=== PATIENT | female | born 1960 | race African-American/Black ===

== ENCOUNTER 2020-11-29 15:12 | Inpatient (IN) | payer SELFPAY ==
[~2020-11-29] VITALS: Ht 170.2 cm; Wt 133.5 kg
--- NOTE | 2020-11-29 16:40 | NUR ---
PT ARRIVED FROM [facility], ASSESSMENT COMPLETED. CONTACTED DR. VELASQUEZ ABOUT PT ARRIVAL, AND ORDERS STARTED. LABS COMPLETED. REPORT GIVEN TO EVANGELISTA ENGEL.
[2020-11-29] MEDS ORDERED: FLEXERIL 1010 MG/TAB PO (17:55)
[2020-11-29] MEDS ORDERED: XARELTO10 MG PO (17:55)
[2020-11-29] MEDS ORDERED: GLUCOPHAGE500 MG/TAB PO (17:55)
[2020-11-29] MEDS ORDERED: HCTZ 25MG TAB25 MG PO (17:56)
[2020-11-29] MEDS ORDERED: ASPIRIN 81M81 MG/TA2 PO (17:56)
[2020-11-29] MEDS ORDERED: TOPROL XL 50MG50 MG PO (17:57)
[2020-11-29 18:41] LABS: BASO % 0.3 % (0.0-2.0); EOS % 0.4 % (0-4.0); GRAN # 6.4 (1.4-6.5); GRAN % 83.9 % (42.2-75.2); LYMPH # 0.9 (1.2-3.4); LYMPH % 12.3 % (20.0-51.0); MEAN CELL VOLUME 82 fl (80.0-100.0); MEAN CORPUSCULAR HGB CONC 33 g/dl (33.0-37.0); MEAN PLATELET VOLUME 9.2 fl (7.4-10.4); MONO # 0.1 (0.1-0.6); MONO % 1.8 % (1.7-9.3); PLATELET COUNT 89 K/mm3 (130-400); RED BLOOD COUNT 3.31 M/mm3 (4.10-5.30); REDCELL DISTRIBUTION WIDTH-CV 19.1 % (11.5-14.5)
[2020-11-29 18:44] LABS: HEMOGLOBIN 8.8 g/dl (12.5-16.0); MEAN CORPUSCULAR HEMOGLOBIN 27 pg (27.0-31.0)
[2020-11-29 18:47] LABS: INR 1.4 (0.8-3.0); PROTHROMBIN TIME 16.1 SECONDS (9.7-12.8)
[2020-11-29 18:48] LABS: CREATININE, serum 3.27 (0.52-1.25); POTASSIUM 4.3 mmol/L (3.4-5.0); URIC ACID 13.3 mg/dL (2.5-6.2)
[2020-11-29 19:30] VITALS: PULSE 113; TEMP 98.4
[2020-11-29 23:07] VITALS: BP 111/60; PULSE 87; TEMP 98.6
[2020-11-30] VITALS (7 sets, daily range): BP systolic 88–111; BP diastolic 58–63; PULSE 82–98; TEMP 97.4–98.6
--- NOTE | 2020-11-30 01:50 | NUR ---
Call placed to Dr. Duran re: vomit x 2- green bile smelling liquid, no new orders at this time.
[2020-11-30 03:52] LABS: BASO % 0.2 % (0.0-2.0); EOS % 0.2 % (0-4.0); GRAN # 7.5 (1.4-6.5); GRAN % 85.2 % (42.2-75.2); LYMPH % 10.9 % (20.0-51.0); MEAN CELL VOLUME 83 fl (80.0-100.0); MEAN CORPUSCULAR HGB CONC 33 g/dl (33.0-37.0); MEAN PLATELET VOLUME 10.2 fl (7.4-10.4); MONO # 0.2 (0.1-0.6); MONO % 1.9 % (1.7-9.3); PLATELET COUNT 75 K/mm3 (130-400); RED BLOOD COUNT 3.38 M/mm3 (4.10-5.30); REDCELL DISTRIBUTION WIDTH-CV 19.2 % (11.5-14.5)
[2020-11-30 03:56] LABS: HEMOGLOBIN 9.2 g/dl (12.5-16.0); MEAN CORPUSCULAR HEMOGLOBIN 27 pg (27.0-31.0)
[2020-11-30 04:03] LABS: ALBUMIN 2.3 gm/dL (3.5-5.0); CALCIUM 7.1 mg/dL (8.4-10.2); CREATININE, serum 3.31 (0.52-1.25); POTASSIUM 4.3 mmol/L (3.4-5.0)
--- NOTE | 2020-11-30 10:00 | NUR ---
Assessment completed, alert/oriented, vital signs stable /hypotensive and SBP 90's and is aware, patient reports pain is tolerable this morning and overall improved sence having BM last night s/p enema, abdomen is soft/ BS + but hypoactive, she is making very low volume urine ouput/ is aware of this, heart RRR/ SR on tele, lungs CTA/ no resp.difficulty, she has multipe open areas to her gluteal/sacrum/coccygeal areas as well as under her breasts/ panis and to her inner thighs, will continue to monitor
--- NOTE | 2020-11-30 10:50 | NUR ---
HepXa within goal rang at 0.29, no rate change, will continue TRA 10ml/hr (1000u/hr), next HepXa level to be checked at 1700
[2020-11-30 10:52] LABS: COLLECTION METHOD CATHETER
[2020-11-30 11:06] LABS: MUCOUS Present /lpf; PH 5 (5-8); SQUAMOUS EPITHELIAL None Seen /hpf; URINE APPEARANCE Cloudy; URINE BACTERIA Occasional /hpf; URINE BILIRUBIN Negative (NEGATIVE); URINE BLOOD 3+ (NEGATIVE); URINE COLOR Amber; URINE GLUCOSE Negative (NEGATIVE); URINE KETONE Negative (NEGATIVE); URINE LEUKOCYTE ESTERASE 2+ (NEGATIVE); URINE NITRATE Negative (NEGATIVE); URINE PROTEIN(semi-quant) 1+ (NEGATIVE); URINE RBC >50 /hpf
--- NOTE | 2020-11-30 13:59 | NUR ---
Revisit plan after surgery. SW met with patient and Grace . Patient reports that they reside in [place]. Patient reports that her secondary contact is Shelby . Patient reports that her PCP Anusha Liriano at [facility]. Obtains medications from [facility]. Patient reports that she uses [facility]. Patient reports that she was just awarded Disability SSI. Patient reports she is unsure of her needs until after the surgery. Primary transitional care manager is her . Will cotniet to follow for changes in needs.
--- NOTE | 2020-11-30 19:12 | NUR ---
I notified at 1900 that patient is still having soft blood pressures with SBP 90's, also having low blood sugars despite taking in PO intake, last two fsbs have been in the 60's, also have been unable to start a 2nd IV and her current peripheral IV does not appear that it is going to last very long and currently has Hep Gtt going
--- NOTE | 2020-11-30 19:20 | NUR ---
Sitting up in bed, encouraging po fluid/food intake, BSL 69 notified by offgoing RN, no s/s of hypo glycemia, VS stable, Wolf in place.
--- NOTE | 2020-11-30 22:11 | NUR ---
Awake, alert, took pm medications w/o difficulty, heparin gtt ongoing w/o issue, next Xa level at midnight, updated patient on plan of care, blood sugar remains low at 66- encouraging po intake, will recheck, lawson catheter in place, skin care continues addressing excoriation, bruising, bilateral stg 2 to buttocks-mepilex in place, panis and bilateral under breast areas with nystatin powder, offloading pressure with pillows- patient verbalizes importance of turning and repostioning, call campos w/i reach, vomit x 1 -green/yellow liquid, will continue to monitor.
[2020-12-01] VITALS (9 sets, daily range): BP systolic 100–110; BP diastolic 55–70; PULSE 100–114; TEMP 97.6–98.1
[2020-12-01 06:43] LABS: MEAN CELL VOLUME 84 fl (80.0-100.0); MEAN CORPUSCULAR HGB CONC 32 g/dl (33.0-37.0); MEAN PLATELET VOLUME 11.9 fl (7.4-10.4); PLATELET COUNT 79 K/mm3 (130-400); RED BLOOD COUNT 3.07 M/mm3 (4.10-5.30); REDCELL DISTRIBUTION WIDTH-CV 19.6 % (11.5-14.5)
[2020-12-01 06:51] LABS: HEMATOCRIT 25.9 % (37.0-47.0); HEMOGLOBIN 8.2 g/dl (12.5-16.0); MEAN CORPUSCULAR HEMOGLOBIN 27 pg (27.0-31.0)
[2020-12-01 06:55] LABS: ALBUMIN 2.2 gm/dL (3.5-5.0); BILIRUBIN,TOTAL 1.9 mg/dL (0.0-1.0); CALCIUM 7.3 mg/dL (8.4-10.2); CREATININE, serum 3.44 (0.52-1.25); PHOSPHOROUS 2.7 mg/dL (2.5-4.5); POTASSIUM 3.9 mmol/L (3.4-5.0); TOTAL PROTEIN 6.7 gm/dL (6.4-8.2)
[2020-12-01 06:59] LABS: INR 1.3 (0.8-3.0)
--- NOTE | 2020-12-01 07:00 | NUR ---
Assessment completed, alert/oriented, vital signs unchanged and stable/ still hypotensive and borderline tachycardic but afebrile, pain is "ok" right now, she is going to be having dialysis cath placed this morning by / consent is signed / hep. gtt was shut off at 0200 and she has been NPO, fsbs 60-70's, present in the room
[2020-12-01 07:56] LABS: ANISOCYTOSIS 3+; LYMPHOCYTE 12 % (20.0-51.0); METAMYELOCYTE 1 % (0-0); MYELOCYTE 1 % (0-0); NEUTROPHILS 85 % (42.0-75.2); PLATELET ESTIMATE DECREASED (NORMAL)
[2020-12-01 07:57] LABS: HYPOCHROMIA 3+; OVALOCYTES 1+; POIKILOCYTOSIS 1+; POLYCHROMASIA 1+; TEAR DROP CELLS 1+
--- NOTE | 2020-12-01 08:04 | NUR ---
Patient is going down to OR for dialysis catheter placement
--- NOTE | 2020-12-01 09:30 | NUR ---
Patient arrived back to room 307 from OR at this time, she is drowsy but easy to arouse, vital signs stable, dressing to right IJ HDC is C/D/I, present at bedside
--- NOTE | 2020-12-01 18:58 | NUR ---
Patient sitting up in bed, resting quietly, heparin gtt ongoing, call beth w/i reach, patient teaching re: offloading pressure points and wounds, denies needs at this time, no s/s of hypo/hyper glycemia,
--- NOTE | 2020-12-01 21:32 | NUR ---
resting quietly, patient c/o constipation and feeling like I have to go but not being able to and pain with passing gas- MD aware, awaiting surgury consult, Heparin gtt continues @ 10.5ml/hr as ordered, next Xa due at 0200, no s/s of bleeding, patient turned q 2 hours and offloading pressure with pillows, no s/s of hypo/hyper glycemia noted, encouraging po intake, call campos w/i reach.
[2020-12-02] VITALS (7 sets, daily range): BP systolic 86–109; BP diastolic 57–67; PULSE 100–116; TEMP 97.4–98.8
[2020-12-02 02:13] LABS: MEAN CELL VOLUME 86 fl (80.0-100.0); MEAN CORPUSCULAR HGB CONC 32 g/dl (33.0-37.0); MEAN PLATELET VOLUME 9.1 fl (7.4-10.4); PLATELET COUNT 69 K/mm3 (130-400); RED BLOOD COUNT 2.89 M/mm3 (4.10-5.30); REDCELL DISTRIBUTION WIDTH-CV 19.6 % (11.5-14.5)
[2020-12-02 02:16] LABS: HEMATOCRIT 24.7 % (37.0-47.0); HEMOGLOBIN 7.9 g/dl (12.5-16.0); MEAN CORPUSCULAR HEMOGLOBIN 27 pg (27.0-31.0)
[2020-12-02 02:22] LABS: BILIRUBIN,TOTAL 1.7 mg/dL (0.0-1.0); CALCIUM 7.2 mg/dL (8.4-10.2); CREATININE, serum 2.99 (0.52-1.25); POTASSIUM 3.8 mmol/L (3.4-5.0); TOTAL PROTEIN 6.3 gm/dL (6.4-8.2)
[2020-12-02 02:51] LABS: BAND 4 % (0-10); LYMPHOCYTE 12 % (20.0-51.0); NEUTROPHILS 81 % (42.0-75.2)
[2020-12-02 02:52] LABS: HYPOCHROMIA 1+
[2020-12-02 02:54] LABS: ANISOCYTOSIS 1+; PLATELET ESTIMATE DECREASED (NORMAL)
[2020-12-02 02:55] LABS: OVALOCYTES 1+
[2020-12-02 02:59] LABS: EOSINOPHIL 1 % (0-4)
--- NOTE | 2020-12-02 09:00 | NUR ---
PT HAS C/O PAIN IN R KNEE, REQUESTED AND RECEIVED TYLENOL 500MG FOR PAIN; PT TO DIALYSIS PER BED AT 0900
--- NOTE | 2020-12-02 11:34 | NUR ---
PT RETURNED FROM DIALYSIS
--- NOTE | 2020-12-02 12:29 | NUR ---
PT STATES SHE BECOMES ILL EACH TIME SHE EATS, ONDANSATRON GIVEN PRIOR TO LUNCH FOR ANTICIPATORY NAUSEA. PT HAS C/O 07/13 FOR R KNEE PAIN - DECLINED ANY MEDICATIONS, REPOSITIONED FOR COMFORT.
--- NOTE | 2020-12-02 14:53 | NUR ---
PATIENT HAS C/O PAIN IN LOWER ABDOMEN/RECTAL AREA; RATES 9/10; MOANING NOTED. DILAUDID GIVEN. PATIEN WAITING FOR TO ARRIVE SO CREAM CAN BE PURCHASED.
--- NOTE | 2020-12-02 16:05 | NUR ---
The patient is listed as self pay. SW attempted to contact Marii with financial counseling to inquire if she has Medicaid. SW left her a voicemail.
--- NOTE | 2020-12-02 18:00 | NUR ---
PT CREAM ARRIVED FROM [facility]. MEDICATION LABELED W/ PT STICKER AND PLACED IN MED ROOM FOR PT LABELING. PHARMACY CALLED AND NOTIFIED.
--- NOTE | 2020-12-02 18:12 | NUR ---
Patient sleeping in bed, resting after treatment for pain. Compound Rx ordered for patient delivered and pharmacy notified to make patient label for inpat scanning purposes. Patient has been encouraged to eat and meal trays have been ordered, however she sends them back as they are delivered. She states she get nauseated with eating. Ondansatron given earlier for anticipatory nausea, however patient only ate peanut butter crackers and orange juice. No needs or c/o at this time.
--- NOTE | 2020-12-02 20:00 | NUR ---
Report received, assumed care for shift lab technician. Assessment complete. VS stable. A&Ox3-drowsy. Denies pain/nausea/shortness of breath. States she is worn out from dialysis. Plan of care discussed for this shift to include HS meds/heparin/lab draw. Verbalizes understanding/denies needs. Call ight in reach. Will monitor.
[2020-12-02 21:59] LABS: HEPATITIS B SURFACE ANTIGEN Negative (Negative)
[2020-12-02 22:03] LABS: HEPATITIS B SURFACE ANTIBODY <2.0 (())
--- NOTE | 2020-12-02 23:45 | NUR ---
HepXa 0.22. Heparin increased to 10ml/hr/1000units. Order placed for next hepxa.
[2020-12-03] VITALS (20 sets, daily range): BP systolic 82–110; BP diastolic 52–71; PULSE 93–126; TEMP 97.6–99.4
--- NOTE | 2020-12-03 00:30 | NUR ---
PCT reports blood pressure of 86/57. Patient is asymptomatic. Rechecked manually by this nurse-96/52. Will continue to monitor.
[2020-12-03 02:00] LABS: HEPATITIS C VIRUS ANTIBODY Negative (Negative)
[2020-12-03 07:13] LABS: MEAN CELL VOLUME 82 fl (80.0-100.0); MEAN CORPUSCULAR HGB CONC 33 g/dl (33.0-37.0); MEAN PLATELET VOLUME 8.7 fl (7.4-10.4); RED BLOOD COUNT 2.65 M/mm3 (4.10-5.30); REDCELL DISTRIBUTION WIDTH-CV 18.6 % (11.5-14.5)
[2020-12-03 07:14] LABS: HEMATOCRIT 21.7 % (37.0-47.0); HEMOGLOBIN 7.1 g/dl (12.5-16.0); MEAN CORPUSCULAR HEMOGLOBIN 27 pg (27.0-31.0)
[2020-12-03 07:15] LABS: PLATELET COUNT 48 K/mm3 (130-400)
[2020-12-03 07:25] LABS: BILIRUBIN,TOTAL 1.9 mg/dL (0.0-1.0); CALCIUM 7.5 mg/dL (8.4-10.2); CREATININE, serum 1.93 (0.52-1.25); POTASSIUM 3.2 mmol/L (3.4-5.0); TOTAL PROTEIN 6.2 gm/dL (6.4-8.2)
--- NOTE | 2020-12-03 08:31 | NUR ---
ALERT AND CHEERFUL THIS MORNING, STATS SHE IS FEELING MUCH BETTER. OBJECTIVE SIGNS OF PAIN PPRESENT WHEN MOVING R KNEE BUT RATES PAIN AT 0/10 WHEN STILL. MULTPILE SMALL STAGE 2 OPENINGS NOTED ON COCCYX, MEPELEX DRESSING CHANGED AND BARRIER CREAM APPLIED. PATIENT TO DIALYSIS AT 0815.
[2020-12-03 08:33] LABS: EOSINOPHIL 1 % (0-4); LYMPHOCYTE 6 % (20.0-51.0); NEUTROPHILS 91 % (42.0-75.2); PLATELET ESTIMATE DECREASED (NORMAL); TARGET CELLS 1+
[2020-12-03 08:34] LABS: TEAR DROP CELLS 1+
--- NOTE | 2020-12-03 08:43 | NUR ---
PATIENT HEPARIN ASSAY AT GOAL, NO CHANGE IN INFUSION RATE, NEXT ASSAY AT 1400.
--- NOTE | 2020-12-03 09:00 | NUR ---
REPORTED TO CAROLYN NAIDU THAT PT'S PLATELET IS CRITICAL AT 48
--- NOTE | 2020-12-03 14:05 | NUR ---
Marii, financial counselor, reports that she will get in touch with the patient for a Medicaid application. PT/OT is recommending post-acute rehab. SW consulted IPR Director, Marcela.
--- NOTE | 2020-12-03 17:13 | NUR ---
PATIENT HAD RESTFUL DAY, STATES SHE FEELS "MUCH BETTER" THAN SHE HAD EARLIER. RECEIVED 2U RBC AND TOLERATED WELL. HAS BEEN ABLE TO EAT 50% OF MEALS TODAY WITHOUT NAUSEA. PATIENT IS EXCITED TO START PT AND STATES SHE CANNOT "GO BACK INTO THE BED" WHEN SHE GETS HOME. NO C/O OR NEEDS VOICED AT THIS TIME.
--- NOTE | 2020-12-03 17:23 | NUR ---
JUICE GIVEN FOR LOW BS, WILL RECHECK
--- NOTE | 2020-12-03 17:38 | NUR ---
RECHECK PT BS, STILL LOW AT 64. PT DRANK ORANGE JUICE AND HAD CRACKERS, DINNER IS ORDERED. PT IS ASYMPTOMATIC WITHOUT C/O.
--- NOTE | 2020-12-03 19:45 | NUR ---
Blood transfusion ended at this time. Vital signs are temp 98.4, BP 99/59, HR 116, 02 98% on RA. Patient denies symptoms of transfusion reaction. Will continue to monitor.
--- NOTE | 2020-12-03 20:00 | NUR ---
Assessment complete. Patient is alert and oriented with complaints of pain in knees; PRN Tylenol administered. Heart rate is tachy with a regular rhythm, lungs are clear with distant bases, likely due to obesity. Bilateral lower extremity edema is present with 1+ pitting and heels are slightly red; Heels are offloaded on pillows. Multiple stage II pressure ulcers are noted on the patient's coccyx; Prescribed ointment is applied and new mepilex is applied. Patient is breathing well on RA. Call light in reach and patient repositioned. Will continue to monitor.
[2020-12-03 21:56] LABS: CALCIUM 7.8 mg/dL (8.4-10.2); CREATININE, serum 1.47 (0.52-1.25); POTASSIUM 3.2 mmol/L (3.4-5.0)
[2020-12-04 04:30] VITALS: BP 105/60; PULSE 93; TEMP 98.6
[2020-12-04 06:47] LABS: MEAN CELL VOLUME 82 fl (80.0-100.0); MEAN CORPUSCULAR HGB CONC 34 g/dl (33.0-37.0); RED BLOOD COUNT 3.57 M/mm3 (4.10-5.30)
[2020-12-04 06:57] LABS: HEMATOCRIT 29.2 % (37.0-47.0); HEMOGLOBIN 9.9 g/dl (12.5-16.0); MEAN CORPUSCULAR HEMOGLOBIN 28 pg (27.0-31.0)
[2020-12-04 06:58] LABS: PLATELET COUNT 36 K/mm3 (130-400)
[2020-12-04 07:07] LABS: BILIRUBIN,TOTAL 2.7 mg/dL (0.0-1.0); CALCIUM 7.9 mg/dL (8.4-10.2); CREATININE, serum 1.67 (0.52-1.25); POTASSIUM 3.5 mmol/L (3.4-5.0); TOTAL PROTEIN 6.2 gm/dL (6.4-8.2)
[2020-12-04 07:19] VITALS: BP 109/63; PULSE 107; TEMP 98.6
[2020-12-04 08:19] LABS: BAND 1 % (0-10); EOSINOPHIL 4 % (0-4); LYMPHOCYTE 13 % (20.0-51.0); NEUTROPHILS 80 % (42.0-75.2); PLATELET ESTIMATE DECREASED (NORMAL)
[2020-12-04 08:20] LABS: TARGET CELLS 2+; TEAR DROP CELLS 1+
--- NOTE | 2020-12-04 08:47 | NUR ---
Assessment complete. Patient awake and alert at this time. Tenderness noted in BLE and feet during palpation of pedal pulses. No other complaints of pain at this time. Right IJ dialysis catheter site is CD&I with no issues. HR tachy at time of assessment but regular. Patient pleasant in conversation. Will continue to monitor. Call light is in reach.
--- NOTE | 2020-12-04 09:08 | NUR ---
Initial visit; Patient thanked Windmill Mechanic for stopping though doesn't have any spiritual needs she wishes to address at this time.
--- NOTE | 2020-12-04 11:20 | NUR ---
At this time TELE called to notify that pt HR was in the 170. Patient had just worked with PT and got to the chair, at this time pt states that she feels fine and is happy to have gotten up to the chair. HR did not come back down and was staying 140-160. Celsa RN with was notified and went to see patient at this time. Patient reported pain in rectum due to rectal fissure. per Celsa, pt was given PRN dilaudid in an effor to help the pain. I offered for patient to get back to the bed adn she states it does not help. Dilaudid was effective. Pt states it helped her pain but made her a little sleepy. Patient is now comfortable at this time. Will continue to monitor. Call light is in reach.
[2020-12-04 12:12] VITALS: BP 103/54; PULSE 120; TEMP 98.3
--- NOTE | 2020-12-04 13:12 | NUR ---
Patient has had 2 episodes of vomiting once while attempting to drink some juice and the other while attempting to eat some soup. PAtient states that she is not nauseous and does not need nausea medication. I have offered this 2 her twice, she refuses. Vomiting has ceased at this time. Will continue to [facility]. Call light is in reach.
--- NOTE | 2020-12-04 13:15 | NUR ---
Per additional nursing orders direct from Dr. Duran, ABD ultrasound and IVC filter placement orders were placed now 12/04/20 , assistance from Debbie was appreciated to ensure proper input of order.
--- NOTE | 2020-12-04 15:06 | NUR ---
APARNA met with the patient and connected her with financial counselor, Marii, to complete the Medicaid application.
--- NOTE | 2020-12-04 15:30 | NUR ---
Pt reports continuous nausea at this time as well as pain and requested PRN medications for this. PRN zofran and dilaudid were provided to the patient at this time. Patient is now back in bed after working with PT. She states it felt good to get up and move around but that it may have made the nausea worse. Will continue to monitor. Call light is in reach.
[2020-12-04 15:41] VITALS: BP 109/75; PULSE 130; TEMP 97.5
--- NOTE | 2020-12-04 17:56 | NUR ---
Patient did well today despite nausea and pain. She was determined to move with PT and was able to sit up in the chair for a good portion of the day, lift was used to move pt back to bed. PRN medications given as needed. Continuing to monitor. Call light is in reach.
[2020-12-04 19:11] LABS: ALBUMIN 2.5 gm/dL (3.5-5.0); CALCIUM 8.3 mg/dL (8.4-10.2); CREATININE, serum 1.7 (0.52-1.25); PHOSPHOROUS 2.5 mg/dL (2.5-4.5); POTASSIUM 3.7 mmol/L (3.4-5.0)
[2020-12-04 19:40] VITALS: BP 92/66; PULSE 116; TEMP 97.4
--- NOTE | 2020-12-04 20:00 | NUR ---
Assessment complete. Patient is resting in bed; She is alert and oriented and states her pain is at a tolerable level. Heart sounds are tachy with regular rhythm, lungs are clear with diminished bases, pulses 2/1. Patient has several areas of skin breakdown, including multiples stage II pressure ulcers on her coccyx and buttocks, and excoriations on her inner thighs and under her breasts. These areas are cleaned, dried and covered with Desenex powder at this time. Indwelling catheter is draining small amounts of dark, hazy urine. Patient is breathing well on RA and has no new concerns. Call light is in reach.
--- NOTE | 2020-12-05 | NUR ---
Patient complains of pain 03/13 and requests PRN dilaudid 0.5 mg, which is administered at this time.
[2020-12-05 00:16] VITALS: BP 101/71; PULSE 98; TEMP 98
[2020-12-05 04:39] VITALS: BP 103/70; PULSE 97; TEMP 98
[2020-12-05 06:44] LABS: BASO % 0.3 % (0.0-2.0); EOS # 0.1 (0.0-0.7); EOS % 0.7 % (0-4.0); GRAN # 5.7 (1.4-6.5); GRAN % 82.4 % (42.2-75.2); HEMOGLOBIN 11.1 g/dl (12.5-16.0); LYMPH # 0.9 (1.2-3.4); MEAN CELL VOLUME 83 fl (80.0-100.0); MEAN CORPUSCULAR HEMOGLOBIN 28 pg (27.0-31.0); MEAN CORPUSCULAR HGB CONC 34 g/dl (33.0-37.0); MONO # 0.2 (0.1-0.6); MONO % 2.7 % (1.7-9.3); RED BLOOD COUNT 3.98 M/mm3 (4.10-5.30); REDCELL DISTRIBUTION WIDTH-CV 18.2 % (11.5-14.5)
[2020-12-05 06:54] LABS: HEMATOCRIT 33.1 % (37.0-47.0)
[2020-12-05 06:56] LABS: PLATELET COUNT 43 K/mm3 (130-400)
[2020-12-05 07:01] LABS: ALBUMIN 2.5 gm/dL (3.5-5.0); CALCIUM 8.4 mg/dL (8.4-10.2); CREATININE, serum 1.78 (0.52-1.25); PHOSPHOROUS 2.8 mg/dL (2.5-4.5)
[2020-12-05 07:06] LABS: POTASSIUM 4.2 mmol/L (3.4-5.0)
--- NOTE | 2020-12-05 07:59 | NUR ---
Assessment complete. PAtient sitting up in bed, awake and alert this morning. States she is a little achey and nauseous. Patient was educated on the use of the IV dextrose in order to raise her sugar due to her NPO status at this time. Protocol recieved from hospitalist Yolande TRONCOSO, notified via voicemail, no answer on phone call attempt this AM. Patient agrees to this and understands. Will conitnue to monitor closely. Call light is in reach.
--- NOTE | 2020-12-05 08:08 | NUR ---
Blood sugar 81 on recheck at this time. Will recheck on 1 hour and then every 4 per protocol. Continuing to monitor. Call light is in reach.
[2020-12-05 08:28] VITALS: BP 110/75; PULSE 117; TEMP 98.3
[2020-12-05 11:12] VITALS: BP 125/76; PULSE 115; TEMP 98.3
--- NOTE | 2020-12-05 12:18 | NUR ---
Dr. Duran was verbally informed of patients poor output overnight and this morning. Patients PO intake was discussed as well as nausea yesterday and this morning as well as NPO status this AM. Dr. Duran encouraged the pt to increase her PO intake and we will monitor closely.
--- NOTE | 2020-12-05 13:48 | NUR ---
Primary nurse was assisted with [phone] patient care by [employer] [facility] Mirian Metzger and [employer] instructor Sadie Navarro RN-.
--- NOTE | 2020-12-05 15:07 | NUR ---
Marii, Financial Counselor, completed the Medicaid application with the patient and needs Release of Information forms signed. APARNA met with the patient and presented the Release of Information forms. The patient signed the forms and SW emailed them back to financial counseling. APARNA discussed how therapy is recommending post-acute rehab and that a referral has been sent to [facility]. The patient was agreeable to this. APARNA also contacted and gave a referral to Danny at [facility].
[2020-12-05 16:47] VITALS: BP 120/64; PULSE 112; TEMP 97.5
[2020-12-05 17:53] LABS: COLLECTION METHOD IN
[2020-12-05 18:04] LABS: BUDDING YEAST Present /hpf; MUCOUS Present /lpf; PH 5 (5-8); SQUAMOUS EPITHELIAL 0-2 /hpf; URINE APPEARANCE Cloudy; URINE BACTERIA Occasional /hpf; URINE BILIRUBIN Positive (NEGATIVE); URINE BLOOD 3+ (NEGATIVE); URINE COLOR Amber; URINE GLUCOSE Negative (NEGATIVE); URINE KETONE Negative (NEGATIVE); URINE LEUKOCYTE ESTERASE 1+ (NEGATIVE); URINE NITRATE Negative (NEGATIVE); URINE PROTEIN(semi-quant) 1+ (NEGATIVE); URINE RBC >50 /hpf; URINE UROBILINOGEN >=4.0 mg/dL (NEGATIVE); URINE WBC >50 /hpf
--- NOTE | 2020-12-05 18:40 | NUR ---
Patient had a good day. Nausea improved since yesterday but patient is still not taking much PO. Pain managed with PRN pain medication. New mepilex placed on ulcers on bottom. Area under breasts was cleaned, dried and dessenex was applied to the area. Patient denies pain in that area. She has had minimal needs through the day. PO intake was encouraged and patient is aware of why. no other needs. Call light is in reach.
[2020-12-05 19:35] VITALS: BP 102/71; PULSE 107; TEMP 97.8
--- NOTE | 2020-12-05 20:00 | NUR ---
Assessment complete. Patient complains of pain in knees and rectum 6/ and requests dilaudid; 0.5 mg dilaudid administered at this time. She states her nausea has subsided; PO intake is encouraged and patient requets grap juice. Patient's skin is still excoriated between thighs and under breasts and stage II's on coccyx remain covered with Mepilex. Call light in reach, will continue to monitor.
[2020-12-06 00:17] VITALS: BP 98/69; PULSE 97; TEMP 97.4
--- NOTE | 2020-12-06 01:15 | NUR ---
GURPREET De La Cruz notified of patient's decreased urine output at this time. Patient has had approx. 35 mls urine out all shift. NS at 125 ml/hr started in right a/c IV. Will continue to monitor.
[2020-12-06 04:40] VITALS: BP 104/66; PULSE 94; TEMP 98
--- NOTE | 2020-12-06 06:30 | NUR ---
BG 59 at this time. 12.5 mg Detrose IV administered. Will recheck in 15 minutes.
[2020-12-06 07:24] LABS: BASO % 0.3 % (0.0-2.0); EOS # 0.1 (0.0-0.7); EOS % 2.3 % (0-4.0); GRAN # 4.5 (1.4-6.5); HEMOGLOBIN 10.1 g/dl (12.5-16.0); LYMPH # 0.8 (1.2-3.4); LYMPH % 14.5 % (20.0-51.0); MEAN CORPUSCULAR HEMOGLOBIN 28 pg (27.0-31.0); MEAN CORPUSCULAR HGB CONC 32 g/dl (33.0-37.0); MEAN PLATELET VOLUME 9.9 fl (7.4-10.4); MONO # 0.2 (0.1-0.6); PLATELET COUNT 50 K/mm3 (130-400); RED BLOOD COUNT 3.63 M/mm3 (4.10-5.30); REDCELL DISTRIBUTION WIDTH-CV 18.8 % (11.5-14.5)
[2020-12-06 07:29] LABS: HEMATOCRIT 31.9 % (37.0-47.0)
[2020-12-06 07:30] LABS: MEAN CELL VOLUME 88 fl (80.0-100.0)
[2020-12-06 07:36] VITALS: BP 95/58; PULSE 95; TEMP 97.6
[2020-12-06 07:37] LABS: ALBUMIN 2.2 gm/dL (3.5-5.0); BILIRUBIN,TOTAL 2.2 mg/dL (0.0-1.0); CALCIUM 8.3 mg/dL (8.4-10.2); CREATININE, serum 2.03 (0.52-1.25); POTASSIUM 3.9 mmol/L (3.4-5.0); TOTAL PROTEIN 6.5 gm/dL (6.4-8.2)
--- NOTE | 2020-12-06 11:53 | NUR ---
Patient to dialysis by bed. No needs at this time.
--- NOTE | 2020-12-06 13:42 | NUR ---
Primary nurse was assisted with [phone] patient care by [employer] [facility] Mirian Metzger and [employer] instructor Sadie Navarro RN-.
--- NOTE | 2020-12-06 14:50 | NUR ---
Patient back to room from dialysis by bed. Denies needs at this time.
--- NOTE | 2020-12-06 15:00 | NUR ---
Contacted Radiologist re IVC filter placement. Will be able to place on Wednesday. Notified ABA Harper.
[2020-12-06 16:46] VITALS: BP 101/63; PULSE 111; TEMP 97.9
--- NOTE | 2020-12-06 16:47 | NUR ---
BS at 58, patient currently eating supper will recheck in 15 min.
--- NOTE | 2020-12-06 17:07 | NUR ---
Contacted Meredith Caballero patients blood sugar. No new orders at this time.
--- NOTE | 2020-12-06 17:10 | NUR ---
Recheck BS at 55, provided with oral glucose gel. Spouse at bedside. Will recheck.
--- NOTE | 2020-12-06 17:33 | NUR ---
BS recheck at 52, encouraged patient to eat her supper. Will recheck.
--- NOTE | 2020-12-06 17:56 | NUR ---
BS recheck at 64. Patient continues eating supper. Will recheck
--- NOTE | 2020-12-06 19:18 | NUR ---
Patient doing well this afternoon, had small liquid BM. Pericare provided, barrier cream applied and Mepilex changed to sacrum. Patient denies additional needs at this time. Reported off to shift production associate.
[2020-12-06 20:15] VITALS: BP 94/56; PULSE 104; TEMP 98.9
--- NOTE | 2020-12-06 20:30 | NUR ---
Initial shift assessment done-states having pain to legs, back, all over- requesting Dilaudid--will give as ordered. Tele on, SCD,s removed at this time per pts request, states she cant tolerate them on at night-- Wolf to DD with very dark tea colred urine in small amounts, Blood sugar 71 tonight-- will eat a cracker with some peanut butter at this time,, R/ IJ dailysis catheter intact- dressing intact.
[2020-12-07] VITALS (7 sets, daily range): BP systolic 87–112; BP diastolic 54–70; PULSE 92–94; TEMP 97.8–98.5
--- NOTE | 2020-12-07 06:17 | NUR ---
Quiet night-- blood pressure borderline low- low 90,s systolic, asymptomatic-- low output of dk sherri urine-- did let Solange treviño know about lower B/P and low output early this morning-- will continue to assess, pt states did sleep good last night
--- NOTE | 2020-12-07 07:58 | NUR ---
Patient sitting up in bed, TV on. A&Ox3. IV CDI. WBG 60, patient has oral glucose tube at the bedside, asymptomatic. Will continue to monitor. Patient was looking at the menu to order breakfast. Denies pain and discomfort. No further needs expressed from the patient. Call light within reach. Bed alarm on
[2020-12-07 09:30] LABS: ALBUMIN 2.2 gm/dL (3.5-5.0); BILIRUBIN,TOTAL 2.1 mg/dL (0.0-1.0); CALCIUM 8.4 mg/dL (8.4-10.2); CREATININE, serum 1.69 (0.52-1.25); POTASSIUM 3.7 mmol/L (3.4-5.0); TOTAL PROTEIN 6.7 gm/dL (6.4-8.2)
[2020-12-07 09:33] LABS: HEMOGLOBIN 10.1 g/dl (12.5-16.0); MEAN CELL VOLUME 86 fl (80.0-100.0); MEAN CORPUSCULAR HEMOGLOBIN 28 pg (27.0-31.0); MEAN CORPUSCULAR HGB CONC 32 g/dl (33.0-37.0); RED BLOOD COUNT 3.65 M/mm3 (4.10-5.30)
[2020-12-07 09:41] LABS: HEMATOCRIT 31.4 % (37.0-47.0)
[2020-12-07 09:44] LABS: PLATELET COUNT 29 K/mm3 (130-400)
--- NOTE | 2020-12-07 17:44 | NUR ---
Patient had an uneventful day. WBG hypoglycemic, but patient asymptomatic. Oral glucose at the bedside and nursing staff monitoring WBG. Nursing staff also encouraging increasing PO intake. VSS. IV CDI. Family has been at the bedside. Minimal urine output in lawson. No further needs expressed from the patient. Call light within reach. Bed alarm on
--- NOTE | 2020-12-07 20:30 | NUR ---
Initial shift assessment done- states having pain 5/10 to back/legs,will give Dilaudid as ordered, VSS,Tele on, Wolf to DD with small amount dark tea colored urine- continues with generalized edema, pt very pleasant, talkative, alert/oriented, states shes ready to get some good sleep-- INT to R/AC is due to be changed-- did attempt to start a new IV site but unsucessful,, will have another staff try sometime today,,, did redress and clean INT site--working well. Dialysis cathter to right neck w/dressing intact
[2020-12-08] VITALS (8 sets, daily range): BP systolic 89–116; BP diastolic 59–88; PULSE 83–103; TEMP 97.6–98.6
--- NOTE | 2020-12-08 05:28 | NUR ---
Quiet night, slept well throughout the night, VSS, no stools throughout the night, continues with low output from Wolf
--- NOTE | 2020-12-08 07:33 | NUR ---
PT LAYING IN BED AT THIS TIME. NO C/O PAIN OR DISCOMFORT AT THIS TIME. PT HYPOGLYCEMIC, DID DRINK SOME ORANGE JUICE TO BRING UP WBG. NO FURTHER CONCERNS AT THIS TIME. CALL LIGHT WITHIN REACH.
[2020-12-08 09:23] LABS: BASO % 0.6 % (0.0-2.0); EOS # 0.1 (0.0-0.7); GRAN # 3.9 (1.4-6.5); GRAN % 77.8 % (42.2-75.2); LYMPH # 0.8 (1.2-3.4); MEAN CELL VOLUME 87 fl (80.0-100.0); MEAN CORPUSCULAR HEMOGLOBIN 28 pg (27.0-31.0); MEAN CORPUSCULAR HGB CONC 33 g/dl (33.0-37.0); MONO # 0.2 (0.1-0.6); MONO % 4.2 % (1.7-9.3); RED BLOOD COUNT 3.53 M/mm3 (4.10-5.30); REDCELL DISTRIBUTION WIDTH-CV 19.1 % (11.5-14.5)
[2020-12-08 09:27] LABS: HEMATOCRIT 30.8 % (37.0-47.0); PLATELET COUNT 32 K/mm3 (130-400)
[2020-12-08 09:30] LABS: ALBUMIN 2.2 gm/dL (3.5-5.0); BILIRUBIN,TOTAL 2.1 mg/dL (0.0-1.0); CALCIUM 8.6 mg/dL (8.4-10.2); CREATININE, serum 1.87 (0.52-1.25); POTASSIUM 3.9 mmol/L (3.4-5.0); TOTAL PROTEIN 6.6 gm/dL (6.4-8.2)
--- NOTE | 2020-12-08 18:12 | NUR ---
PT HAS HAD UNEVENTFUL DAY, NOT COMPLAINED OF SEVERE PAIN. ORDERS HAVE BEEN PLACED FOR REMOVAL OF DIALYSIS CATHETER TOMORROW AT 0800. PT OTHERWISE STABLE. HYPOGLYCEMIA UNDER CONTROL WITH DIET. NO OTHER CONCERNS AT THIS TIME. WILL REPORT TO SCHEDULING COORDINATOR RN.
--- NOTE | 2020-12-08 20:00 | NUR ---
Assessment complete. Patient has complaints of pain rectal/knees 6/10; PRN dilaudid administered. Left knee is slightly redenned; Voltaren gel is applied. Stage II's on coccyx covered with mepilex and skin under breasts is excoriated from patient itching. No new concerns, patient states she is ready for bed. Call light in reach.
[2020-12-09 04:20] VITALS: BP 101/64; PULSE 83; TEMP 98.1
--- NOTE | 2020-12-09 06:46 | NUR ---
Blood glucose 52 at this time. 12.5 mg dextrose administered per hypoglycewmic protocol. Will recheck in 15 minutes.
[2020-12-09 06:54] LABS: BASO % 0.5 % (0.0-2.0); EOS # 0.1 (0.0-0.7); EOS % 2.9 % (0-4.0); GRAN # 3.1 (1.4-6.5); GRAN % 74.7 % (42.2-75.2); LYMPH # 0.7 (1.2-3.4); MEAN CELL VOLUME 88 fl (80.0-100.0); MEAN CORPUSCULAR HGB CONC 32 g/dl (33.0-37.0); MONO # 0.1 (0.1-0.6); MONO % 3.2 % (1.7-9.3); RED BLOOD COUNT 3.37 M/mm3 (4.10-5.30); REDCELL DISTRIBUTION WIDTH-CV 19.2 % (11.5-14.5)
--- NOTE | 2020-12-09 07:00 | NUR ---
RECEIVED REPORT ON PT. ASSUMED CARE OF PT AT THIS TIME.
[2020-12-09 07:13] VITALS: BP 113/73; PULSE 99; TEMP 98.2
[2020-12-09 07:13] LABS: HEMATOCRIT 29.5 % (37.0-47.0); HEMOGLOBIN 9.4 g/dl (12.5-16.0); MEAN CORPUSCULAR HEMOGLOBIN 28 pg (27.0-31.0)
[2020-12-09 07:14] LABS: PLATELET COUNT 36 K/mm3 (130-400)
[2020-12-09 07:39] LABS: ALBUMIN 2.1 gm/dL (3.5-5.0); BILIRUBIN,TOTAL 2.4 mg/dL (0.0-1.0); CALCIUM 8.7 mg/dL (8.4-10.2); CREATININE, serum 1.78 (0.52-1.25); POTASSIUM 4.3 mmol/L (3.4-5.0); TOTAL PROTEIN 6.4 gm/dL (6.4-8.2)
[2020-12-09 11:56] VITALS: BP 116/73; PULSE 94; TEMP 98.2
--- NOTE | 2020-12-09 12:10 | NUR ---
PT BLOOD GLUCOE 67. GIVEN GRAPE JUICE AND PEANUT BUTTER AND LUNCH TRAY IS ON THE WAY.
[2020-12-09 16:04] VITALS: BP 95/65; PULSE 93; TEMP 98.2
--- NOTE | 2020-12-09 19:34 | NUR ---
Sitting up in bed, resting comfortably, denies needs at this time, updated on poc, verbalizes understanding.
[2020-12-09 19:59] VITALS: BP 106/66; PULSE 90; TEMP 98.5
[2020-12-10] VITALS (11 sets, daily range): BP systolic 95–114; BP diastolic 64–75; PULSE 86–116; TEMP 97.6–98.6
--- NOTE | 2020-12-10 01:41 | NUR ---
Rechecked bsl- 58, patient awake, alert, oriented x 3, drinking OJ and eating peanut butter crackers. Notified Solange Ansari- see new orders
--- NOTE | 2020-12-10 02:25 | NUR ---
Rechecked BSl- WNL, patient awake, alert, oriented x 3, no further c/o at this time
--- NOTE | 2020-12-10 06:12 | NUR ---
Awake, alert, oriented x 3, medicated for pain per patient request, repositioned, call beth w/i reach, BSL 71 this am- eating crackers and drinking juice at this time, lawson per gravity w/o difficulty. Will continue to monitor.
[2020-12-10 07:18] LABS: BASO % 0.5 % (0.0-2.0); EOS # 0.1 (0.0-0.7); EOS % 2.3 % (0-4.0); GRAN # 3.1 (1.4-6.5); GRAN % 79.2 % (42.2-75.2); LYMPH # 0.6 (1.2-3.4); LYMPH % 14.9 % (20.0-51.0); MEAN CELL VOLUME 86 fl (80.0-100.0); MEAN CORPUSCULAR HGB CONC 33 g/dl (33.0-37.0); MONO # 0.1 (0.1-0.6); MONO % 2.6 % (1.7-9.3); RED BLOOD COUNT 3.34 M/mm3 (4.10-5.30); REDCELL DISTRIBUTION WIDTH-CV 19.1 % (11.5-14.5)
[2020-12-10 07:25] LABS: HEMATOCRIT 28.8 % (37.0-47.0); HEMOGLOBIN 9.4 g/dl (12.5-16.0); MEAN CORPUSCULAR HEMOGLOBIN 28 pg (27.0-31.0)
[2020-12-10 07:26] LABS: PLATELET COUNT 39 K/mm3 (130-400)
[2020-12-10 07:33] LABS: ALBUMIN 2.2 gm/dL (3.5-5.0); BILIRUBIN,TOTAL 2.7 mg/dL (0.0-1.0); CALCIUM 8.7 mg/dL (8.4-10.2); CREATININE, serum 1.51 (0.52-1.25); POTASSIUM 4.1 mmol/L (3.4-5.0); TOTAL PROTEIN 6.7 gm/dL (6.4-8.2)
--- NOTE | 2020-12-10 15:01 | NUR ---
SW attempted to contact the patient's , Grace, to review d/c plan. SW left him a voicemail.
--- NOTE | 2020-12-10 15:14 | NUR ---
The patient's , Grace, returned APARNA's phone call. APARNA informed Grace how options are limited for placement, due to being self pay/Medicaid pending and d/c options would be shelter placement vs home. Grace reports that he will be up to the hospital this afternoon and will discuss the options with his and determine what they would like to do. APARNA to continue to follow.
--- NOTE | 2020-12-10 19:12 | NUR ---
R IJ REMOVED EARLIER IN DAY
--- NOTE | 2020-12-10 23:32 | NUR ---
1999- ASSESSMENT AND VITALS COMPLETE. GOLYTLY INITATED IN YELLOW GATORAIDE. ZOFRAN GIVEN. PT TOLERATED 2 GLASSES OF IT AND PROJECTILE VOMIT ACROSS BED. ENTIRE LINEN AND GOWN CHANGED. MEDPILEX TO BOTTOM CHANGED. BM X 2, SOFT AND SEMI LOOSE. WILL TRY AGAIN TO CONTINUE ONCE STOMACH SETTLES. 2200- 1 UNIT OF PLASMA PICKED UP FROM LAB AND VERIFIED W [facility]. BLOOD PRODUCT VITALS INITATED AND CHARTED. AFEBRILE. SOFT BP BUT NO DIFFERENT THAN BASE. PT EDUCATED AND CONSENT WAS SIGNED. ENC TO TRY TO DRINK BOWEL PREP DRINK AGAIN.
[2020-12-11] VITALS (15 sets, daily range): BP systolic 99–114; BP diastolic 64–77; PULSE 84–108; TEMP 97.8–98.7
--- NOTE | 2020-12-11 01:44 | NUR ---
2355- PLATLETS INFUSED WO INCIDENT. PT SLEEPING. RN WAKES UP TO ATTEMPT TO GET MORE GOLYTLE DOWN. IV SALINE LOCKED. VSS. 0115- BLOOD SUGAR OF 69 OBTAINED. ORANGE JUICE, PEANUT BUTTER AND ARNOL CRACKERS CONSUMED. 0145- BLOOD SUGAR OF 72. PT ASSYMPTOMATIC. MONITORING. ENC TO DRINK GOLTYLE. WAS ASLEEP AGAIN WHEN ENTERING ROOM.
--- NOTE | 2020-12-11 04:39 | NUR ---
PT HAD ONE LARGE BM OVERNIGHT WITH COLACE AND 3 CUPS OF GOLYTLEY ON BOARD. BM STILL BROWN AND LOOSE, NOT CLEAR. WILL UPDATE DR PALACIO THIS AM. PT SLEPT OVERNIGHT, WAKES EASILEY BUT WENT BACK TO SLEEP EACH TIME ENC TO DRINK. PREOP CHECKLIST AND CLEAN GOWN ON. WILL START NS PER ORDER THIS AM ORDERED.
--- NOTE | 2020-12-11 05:32 | NUR ---
BS OF 61- PT DENIES ANY SYMPTOMS. D50 12.5GRAM IV PUSHED. CONSENT SIGNED. UPDATE DOUG ON PT STATUS WILL CALL DR PALACIO AT 6AM.
--- NOTE | 2020-12-11 06:06 | NUR ---
DR PALACIO CALLED TO GIVE HIM STATUS OF PT NOT BEING CLEAR W BOWEL PREP DUE TO N/V, PT SLEEPING AND HAVING HYPOGLYLCEMIA OVERNIGHT. WILL JUST DO EGD THIS AM. PT NOTIIFED.
--- NOTE | 2020-12-11 06:45 | NUR ---
Assessment completed. Pt alert in bed. Telemetry on. Wolf catheter with dark sherri urine. INT no redness or edema. Stage 2 ulcer noted on anal area covered with duoderm dressing. Multiple open sores under bilateral breasts. Pt denies pain at this time. Call light within reach.
--- NOTE | 2020-12-11 07:27 | NUR ---
PT TAKEN DOWN FOR EGD
[2020-12-11 07:39] LABS: BASO % 0.4 % (0.0-2.0); EOS # 0.1 (0.0-0.7); EOS % 1.5 % (0-4.0); GRAN # 4.3 (1.4-6.5); GRAN % 80.6 % (42.2-75.2); LYMPH # 0.8 (1.2-3.4); MEAN CELL VOLUME 87 fl (80.0-100.0); MEAN CORPUSCULAR HGB CONC 32 g/dl (33.0-37.0); MEAN PLATELET VOLUME 9.5 fl (7.4-10.4); MONO # 0.2 (0.1-0.6); MONO % 2.8 % (1.7-9.3); PLATELET COUNT 64 K/mm3 (130-400); RED BLOOD COUNT 3.41 M/mm3 (4.10-5.30); REDCELL DISTRIBUTION WIDTH-CV 18.8 % (11.5-14.5)
[2020-12-11 07:48] LABS: INR 1.6 (0.8-3.0)
[2020-12-11 07:59] LABS: ALBUMIN 2.3 gm/dL (3.5-5.0); BILIRUBIN,TOTAL 2.7 mg/dL (0.0-1.0); HEMATOCRIT 29.7 % (37.0-47.0); HEMOGLOBIN 9.5 g/dl (12.5-16.0); MEAN CORPUSCULAR HEMOGLOBIN 28 pg (27.0-31.0); TOTAL PROTEIN 6.6 gm/dL (6.4-8.2)
[2020-12-11 08:08] LABS: BILIRUBIN UNCONJUGATED 0.6 mg/dL (0.0-1.1); BILIRUBIN,DIRECT 2.1 mg/dL (0.0-0.4)
--- NOTE | 2020-12-11 11:08 | NUR ---
CALLED KITCHEN TO GET PT POWERADE/GATORADE WITH SUGAR FOR CHRONICALLY LOW SUGARS
--- NOTE | 2020-12-11 15:40 | NUR ---
The patient had an EGD this day. Volunteer Specialist met with the patient to follow up regarding discharge plan. The patient states she plans to return home with her . The patient inquired about a bedside commode. APARNA informed the patient that the [facility] may have a bedside commode available. She would like to try AAA first. APARNA contacted the patient's , Grace. Grace reports he has not had a chance to discuss the discharge with the patient, he will visit the patient this day to discuss it. APARNA discussed the bedside commode. Juanjosealex would like to try the AAA first, if they do not have one available he will purchase one. APARNA contacted Katrin at the [facility] and she thinks they may have a bedside commode available. She request SW follow up to ensure there is a bedside commode available prior to the patient's discharge. Katrin would like a days notice if able.
--- NOTE | 2020-12-11 16:54 | NUR ---
pt having low sugar, grape juice given, will recheck
--- NOTE | 2020-12-11 18:00 | NUR ---
PT REPORTING PAIN, FREQUENTLY REPOSITIONED, PT AOX4, MEDS GIVEN, LOW SUGARS, GIVING JUICE AND REASSESSING.
--- NOTE | 2020-12-11 18:17 | NUR ---
IV DEXTROSE GIVEN, WILL REASSESS SUGAR IN 15MIN
--- NOTE | 2020-12-11 20:39 | NUR ---
PT FEELING VERY TIRED AFTER TODAY TEST. ALERT AND OX3. DENIES ANY PAIN, TRAMADOL WORKING. ASSESSMENT AND VITALS COMPLETE. CONT TO HAVE LOW BLOOD SUGAR AND TX PER PROTOCOL/ HUSAND AT BEDSIDE. POC DISCUSSED. NEEDS MET .
--- NOTE | 2020-12-12 00:41 | NUR ---
blood sugar obtained of 58, no symptoms. d5 at 50ml/hr iv started. pt has been battling low blood sugar for a while now. also gave grape juice to drink at this time. recheck in 15 min was 62. orange juice provided remains no symptoms of hypoglycemia. will recheck. rating pain 4/10 now after tramadol giving a hr ago. tolerable.
[2020-12-12 03:44] VITALS: BP 91/61; PULSE 96; TEMP 97.7
--- NOTE | 2020-12-12 05:40 | NUR ---
RESTED THROUGHT THE NIGHT. DID HAVE SOME LOW BLOOD SUGAR THAT NEEDED TX. PT NEEDS MET.
[2020-12-12 06:52] LABS: BASO % 0.4 % (0.0-2.0); EOS # 0.1 (0.0-0.7); EOS % 1.4 % (0-4.0); GRAN # 4.1 (1.4-6.5); GRAN % 81.7 % (42.2-75.2); LYMPH # 0.7 (1.2-3.4); LYMPH % 13.1 % (20.0-51.0); MEAN CELL VOLUME 88 fl (80.0-100.0); MEAN CORPUSCULAR HGB CONC 32 g/dl (33.0-37.0); MONO # 0.1 (0.1-0.6); MONO % 2.6 % (1.7-9.3); PLATELET COUNT 52 K/mm3 (130-400); RED BLOOD COUNT 3.02 M/mm3 (4.10-5.30)
--- NOTE | 2020-12-12 07:00 | NUR ---
PT LEAVING FOR GASTRIC EMPTYING STUDY.
[2020-12-12 07:05] LABS: HEMATOCRIT 26.6 % (37.0-47.0); HEMOGLOBIN 8.4 g/dl (12.5-16.0); MEAN CORPUSCULAR HEMOGLOBIN 28 pg (27.0-31.0)
[2020-12-12 07:06] LABS: ALBUMIN 2.1 gm/dL (3.5-5.0); CALCIUM 8.3 mg/dL (8.4-10.2); CREATININE, serum 1.47 (0.52-1.25); PHOSPHOROUS 4.2 mg/dL (2.5-4.5); POTASSIUM 4.3 mmol/L (3.4-5.0)
[2020-12-12 11:15] VITALS: BP 103/65; PULSE 111; TEMP 97.9
[2020-12-12 15:02] VITALS: BP 99/62; PULSE 100; TEMP 97.5
--- NOTE | 2020-12-12 16:09 | NUR ---
Katrin, at [facility], reports that they do have a bedside commode and that the patient's can pick it up today or tomorrow. They close at 5:00 PM. APARNA contacted the patient's , Grace, to follow up on preference for d/c plan. Grace reports that the patient is ready to get home and that he is able to take care of her and feels comfortable taking care of her. APARNA notified him about the bedside commode. Grace requested that SW leave AAA information in the patient's room. APARNA placed the information in the patient's room. SW updated the clinical team of the plan.
[2020-12-12 19:26] VITALS: BP 99/58; PULSE 100; TEMP 98.3
--- NOTE | 2020-12-12 19:28 | NUR ---
PT HAS HAD A ROUGH DAY. INITIALLY IN THE MORNING SHE HAD A GASTRIC EMPTYING STUDY, HOWEVER IT WAS INCOMPLETE DUE TO THE PATIENT'S N/V. THE PT RETURNE TO THE FLOOR AND HAS REMAINED NAUSEAS THE REMAINDER OF THE DAY. THE PT DID WORK WITH PT, HOWEVER, WAS NOT STRONG ENOUGH TO STAND. THE PT WAS ABLE TO BARELY TOLERATE PASSIVE ROM WITH PT. THE LEG PAIN REMAINS A FACTOR IN WHY SHE IS NOT WANTING TO MOVE HER LEGS. THIS RN HAD AN AT LENGTH DISCUSSION WITH HER ON THE NEED TO MOVE HER LEGS, BUT HER HESITANCY IS RELATED TO THE SEVERE PAIN SHE FEELS WHEN SHE MOVES THEM. THIS RN DID BRING UP THE POSSIBILITY OF LYRICA TO THE PROVIDER EVEN IF AT A LOWER DOSE DUE TO KIDNEY FUNCTION. THE PROVIDER DID THEN ORDER A MAG LEVEL WHICH CAME BACK LOW, AND THE NIGHT TIME PROVIDER DID ORDER SOME MAGNESIUM. THIS MAY BE INDICATIVE OF THE LEG PAINS SINCE HER ELECTROLYTES ARE OUT OF BALANCE. MAG WILL BE REPLACED. THE PATIENT DOES NOT HAVE ANY OTHER CONCERNS AT THIS TIME, NOR DOES THIS RN. CALL LIGHT AND BED ALARMS ACTIVE AND IN PLACE. REPORT WAS GIVEN TO EVANGELISTA VILLANUEVA.
--- NOTE | 2020-12-12 21:41 | NUR ---
Patient sitting up in bed upon enter the room. Patient reports some pain to her knee area 5-6 out of 10. Patient also reports feeling nauseous all day. Refused any pain medicine or nausea medicine at this time. Magnesium replaced per order. All scheduled meds given per DEC. Wolf catheter in place and draining sherri urine. 5% Dextrose IV running at 50ml/hr via left AC. BS 78 around 20:30 pm. Call light within reach. Patient denies any needs at this time.
[2020-12-12 23:30] VITALS: BP 95/63; PULSE 91; TEMP 97.9
[2020-12-13 00:06] LABS: C-PEPTIDE,SERUM 1.38 ng/mL (0.80-3.90)
[2020-12-13 03:52] VITALS: BP 99/67; PULSE 87; TEMP 97.3
--- NOTE | 2020-12-13 05:30 | NUR ---
BS was 65 at 03:41 am. Patient asymptomatic. Denies any sympotoms of hypoglycemia. 4 oz of grape juice offered. 5% Dextrose IV continues running at 50ml/hr. BS recheck was BS-79 around 5am. Call light within reach. Patient denies any needs at this time.
[2020-12-13 05:59] LABS: INR 1.5 (0.8-3.0); PROTHROMBIN TIME 17.2 SECONDS (9.7-12.8)
[2020-12-13 06:03] LABS: ALBUMIN 2.3 gm/dL (3.5-5.0); CALCIUM 8.3 mg/dL (8.4-10.2); CREATININE, serum 1.61 (0.52-1.25); MAGNESIUM 1.8 mg/dL (1.6-2.3); TOTAL PROTEIN 7.3 gm/dL (6.4-8.2)
[2020-12-13 06:14] LABS: BILIRUBIN UNCONJUGATED 0.5 mg/dL (0.0-1.1); BILIRUBIN,DIRECT 2.4 mg/dL (0.0-0.4)
--- NOTE | 2020-12-13 07:07 | NUR ---
PT SLEEPING AT THIS TIME. CHECKED ON PT, AND WILL RETURN FOR ASSESSMENT SHORTLY.
[2020-12-13 07:12] LABS: BASO % 0.2 % (0.0-2.0); EOS # 0.1 (0.0-0.7); EOS % 1.3 % (0-4.0); GRAN # 4.3 (1.4-6.5); GRAN % 77.4 % (42.2-75.2); LYMPH # 0.9 (1.2-3.4); LYMPH % 16.6 % (20.0-51.0); MEAN CELL VOLUME 87 fl (80.0-100.0); MEAN CORPUSCULAR HGB CONC 32 g/dl (33.0-37.0); MONO # 0.2 (0.1-0.6); MONO % 3.6 % (1.7-9.3); PLATELET COUNT 62 K/mm3 (130-400); RED BLOOD COUNT 3.31 M/mm3 (4.10-5.30)
[2020-12-13 07:14] LABS: HEMATOCRIT 28.7 % (37.0-47.0); HEMOGLOBIN 9.1 g/dl (12.5-16.0); MEAN CORPUSCULAR HEMOGLOBIN 27 pg (27.0-31.0)
[2020-12-13 07:36] VITALS: BP 107/70; PULSE 90; TEMP 98.3
[2020-12-13 11:12] VITALS: BP 102/73; PULSE 97; TEMP 98
--- NOTE | 2020-12-13 12:57 | NUR ---
PT IS LAYING IN BED, UNABLE TO MOVE MUCH, HOWEVER DOES MOVE LEGS SLIGHTLY ON THE BED. TELEMETRY HAS BEEN DISCONTINUED. WILL CONTINUE TO MONITOR PT WITH VITALS. NO FURTHER CONCERNS AT THIS TIME. PAIN MANAGEMENT WITH THE MORPHINE INSTANT RELEASE TABLET IS EFFECTIVE, SIGNIFICANT REDUCTION IN PAIN WITH THIS TREATMENT. NO FURTHER CONCERNS AT THIS TIME.
[2020-12-13 17:00] VITALS: BP 100/60; PULSE 87; TEMP 98.1
--- NOTE | 2020-12-13 18:59 | NUR ---
Report received from day shift RNBrunilda. Patient resting in bed with eyes closed upon shift start. No acute distress noted. Patient's in the room by the bed-side. Call light within reach. Will continue to monitor.
[2020-12-13 20:00] VITALS: BP 101/71; PULSE 84; TEMP 97.8
--- NOTE | 2020-12-13 20:21 | NUR ---
Patient resting in bed with eyes closed upon enter the room. Patient opens eyes with calling her name. Patient appears drowsy. Wolf catheter in place and draining dark sherri urine. 5% Dextrose running at 50ml/hr via left AC. Patient rating her pain to her knee area 6-7 out of 10. Denies SOB or dyspnea. Denies N/V. All scheduled meds given per DEC. Call light within reach. Patient denies any needs at this time.
[2020-12-13 23:29] VITALS: BP 93/64; PULSE 84; TEMP 97.6
[2020-12-14 02:08] VITALS: BP 113/75
[2020-12-14 02:34] LABS: ARTERIAL BLD GAS TCO2 CT 19.7; ARTERIAL BLOOD GAS BASE EXCESS -6.8 (-2-2); ARTERIAL BLOOD GAS HCO3 18.5 meq/L (22-26); ARTERIAL BLOOD GAS PCO2 36.4 mmHg (35-45); ARTERIAL BLOOD GAS PO2 78.9 mmHg (80-100); ARTERIAL BLOOD GAS pH 7.33 (7.35-7.45)
[2020-12-14 02:50] LABS: BASO % 0.2 % (0.0-2.0); EOS % 0.5 % (0-4.0); GRAN # 4.2 (1.4-6.5); GRAN % 71.4 % (42.2-75.2); LYMPH # 1.4 (1.2-3.4); LYMPH % 23.4 % (20.0-51.0); MEAN CELL VOLUME 86 fl (80.0-100.0); MEAN CORPUSCULAR HGB CONC 32 g/dl (33.0-37.0); MONO # 0.2 (0.1-0.6); MONO % 3.7 % (1.7-9.3); PLATELET COUNT 64 K/mm3 (130-400); RED BLOOD COUNT 3.46 M/mm3 (4.10-5.30); REDCELL DISTRIBUTION WIDTH-CV 19.1 % (11.5-14.5)
[2020-12-14 02:54] LABS: HEMATOCRIT 29.9 % (37.0-47.0); HEMOGLOBIN 9.6 g/dl (12.5-16.0); MEAN CORPUSCULAR HEMOGLOBIN 28 pg (27.0-31.0)
[2020-12-14 02:55] LABS: LACTIC ACID 1.8 mmol/L (0.4-2.0)
[2020-12-14 02:56] LABS: IRON,SERUM 85 ug/dL (35-150)
[2020-12-14 02:56] LABS: ALBUMIN 2.5 gm/dL (3.5-5.0); BILIRUBIN,TOTAL 2.9 mg/dL (0.0-1.0); CALCIUM 8.6 mg/dL (8.4-10.2); CREATININE, serum 2.25 (0.52-1.25); POTASSIUM 4.1 mmol/L (3.4-5.0); TOTAL PROTEIN 7.8 gm/dL (6.4-8.2)
[2020-12-14 03:05] LABS: TOTAL IRON BINDING CAPACITY 137 ug/dL (265-497)
[2020-12-14 03:54] VITALS: BP 104/63; PULSE 101; TEMP 98.3
--- NOTE | 2020-12-14 04:05 | NUR ---
This RN entered room to reposition patient around 0200 am. Noticed patient very drowsy and lethargic. Patient opens eyes a little bit with verbal and tactile stimulation. Patient not alert or oriented. Patient was not able to follow verbal commands. VS stable. BS was 86. Called DEL Lin and reported altered mental status at 02:14 am. DEL Lin came to the room and assessed patient. Narcan given via IV push per order. After a few minutes of receiving Narcan, patient was more alert and oriented. Patient was fully alert and oriented, and following directions after 15 minutes of receing Narcan. Head CT done around 03:30 am. Immediately after head CT, patient starts to feeling nauseous. Small amount of emesis noted. Head of bed elevated. PRN Zofran given per DEC. Call light within reach. Will continue to monitor.
[2020-12-14 07:38] VITALS: BP 107/71; PULSE 92; TEMP 97.9
--- NOTE | 2020-12-14 08:00 | NUR ---
Patient sitting up in bed, drowsy, but easily awakened. Alert and partially confused. VSS. IV CDI. Patient stating that she is not hungry. Denies pain and discomfort. Heels elevated on pillow. No further needs expressed from the patient. Call light within reach
[2020-12-14 10:55] VITALS: BP 93/63; PULSE 94; TEMP 97.8
[2020-12-14 15:14] VITALS: BP 111/62; PULSE 92; TEMP 98.2
--- NOTE | 2020-12-14 18:03 | NUR ---
Patient had an uneventful day, slept most of the day. at the bedside. Alert and confused, drowsy, but easily awakened. VSS. IV CDI, fluids infusing. Denies pain and discomfort. Nursing staff encouraging PO intake, patient stating that she is not very hungry. WBG WNL. Wolf dependent drainage dark sherri. SCD's bilateral feet, heels floated. No further needs expressed from the patient. Call light within reach. Bed alarm on
[2020-12-14 19:08] VITALS: BP 103/67; PULSE 99; TEMP 98.1
--- NOTE | 2020-12-14 20:00 | NUR ---
Assessment complete. Patient is resting in bed and arouses easily to voice; She is alert and oriented and tolerates PO meds well. She breathes RA with no signs of increased work of breathing. She doesn't have any complaints of severe pain but Voltaren gel is applied to knees. Bilater lower extremity edema is present with 1-2+ pitting. Skin is excoriated under both breasts; Desenex powder applied. Multiple stage II pressure ulcers are noticed on patient's posterior and covered with clean, dry mepilex. Left a/c IV infusing fluids. No new concerns, will continue to monitor.
[2020-12-15 00:21] VITALS: BP 120/69; PULSE 102; TEMP 98
[2020-12-15 04:11] VITALS: BP 115/83; PULSE 95; TEMP 97.8
[2020-12-15 08:09] VITALS: BP 124/87; PULSE 88; TEMP 98
--- NOTE | 2020-12-15 09:05 | NUR ---
Peripheral line removed due to infiltration. Consent recieved to place a central line.
--- NOTE | 2020-12-15 09:13 | NUR ---
Pt laying in bed. Alert and oriented. Patient answers questions a bit slowly but has correct answers. She is watching TV and sipping on grape juice.
--- NOTE | 2020-12-15 10:06 | NUR ---
Patient taken by bed to the PACU, nursing unit coordinator with the patient
--- NOTE | 2020-12-15 11:19 | NUR ---
Patient to room 307 by bed from PACU. IV CDI. No further needs expressed from the patient. Call light within reach.
[2020-12-15 11:45] LABS: BASO % 0.2 % (0.0-2.0); EOS % 0.7 % (0-4.0); GRAN # 4.9 (1.4-6.5); GRAN % 84.8 % (42.2-75.2); HEMATOCRIT 26.4 % (37.0-47.0); HEMOGLOBIN 8.4 g/dl (12.5-16.0); LYMPH # 0.6 (1.2-3.4); LYMPH % 10.2 % (20.0-51.0); MEAN CELL VOLUME 86 fl (80.0-100.0); MEAN CORPUSCULAR HEMOGLOBIN 27 pg (27.0-31.0); MEAN CORPUSCULAR HGB CONC 32 g/dl (33.0-37.0); MONO # 0.2 (0.1-0.6); MONO % 3.1 % (1.7-9.3); PLATELET COUNT 60 K/mm3 (130-400); RED BLOOD COUNT 3.07 M/mm3 (4.10-5.30); REDCELL DISTRIBUTION WIDTH-CV 18.8 % (11.5-14.5)
[2020-12-15 11:52] LABS: CALCIUM 8.2 mg/dL (8.4-10.2); CREATININE, serum 2.26 (0.52-1.25); POTASSIUM 3.7 mmol/L (3.4-5.0)
[2020-12-15 13:13] VITALS: BP 132/61; PULSE 77; TEMP 98
--- NOTE | 2020-12-15 15:01 | NUR ---
Central line placed around 1015 on December 15. DW5 connected. Patient non compliant with eating more of their meals.
[2020-12-15 15:23] VITALS: BP 133/87; PULSE 100; TEMP 98.5
--- NOTE | 2020-12-15 17:52 | NUR ---
Agree with student nurses assessment, patient had an IV site to LF AC that infiltrated. IV removed, arm elevated and warm blanket applied. Patient had an uneventful day with the at the bedside. More alert today and oriented x3. VSS. IV CDI, fluids infusing. Denies pain and discomfort. No further needs expressed from the patient. Call light within reach
[2020-12-15 19:07] VITALS: BP 110/68; PULSE 103; TEMP 97.9
--- NOTE | 2020-12-15 19:54 | NUR ---
Patient sitting up in bed and watching TV upon enter the room. Patient A/O x3. Patient's at bedside. Patient denies any pain or discomfort while at rest. Denies SOB or dyspnea, N/V, or headache.5% Dextrose 0.9 NS infusing well at 100ml/hr via Left IJ triple lumen. Left IJ tripe lumen site has no s/s of infection. All scheduled meds given per DEC. Call light within reach. Patient denies any needs at this time.
[2020-12-16] VITALS (15 sets, daily range): BP systolic 95–144; BP diastolic 58–91; PULSE 82–114; TEMP 97.4–99
--- NOTE | 2020-12-16 06:22 | NUR ---
Patient slept well throughout the night. VS stable. BS 76 this morning. No acute distress noted. Repositioned frequently throughout the night. Call light within reach. Will give report to day shift nurse.
--- NOTE | 2020-12-16 09:30 | NUR ---
Pt taken down for bone marrow biopsy at this time.
[2020-12-16 11:33] LABS: ANA SCREEN with REFLEX Positive (Negative)
--- NOTE | 2020-12-16 13:22 | NUR ---
Pt compliant with medications. The amount of pills is difficult for her to swallow at one time. Providing pills over an extended period of time would help her with taking her medications. Most pills also require being cut in half for her to swallow. Using a cup of water with her powder medication in it was sufficient today for her to take her medications. Pt has been instructed that she needs to try to be more mobile and attempt ambulation. Pt prefers to be bedfast. Pt still does not feel the urge to eat food.
--- NOTE | 2020-12-16 14:19 | NUR ---
Aeronautical Inspector spoke with Hospitalist about discharge plan for patient, which will be to return home with her . Patient will possibly be ready for discharge over the next couple days. SW contacted patient's , Grace who advised plan is still for patient to return home. APARNA inquired about patient getting into the house and Grace states that he will be able to assist patient into the home. APARNA reviewed today's PT note with Grace and will continue to follow.
--- NOTE | 2020-12-16 15:01 | NUR ---
Pt had nausea, administered Zofran PRN. Pt was then washed and cleaned 16 December at 1430. Pt was compliant with cleaning. Pt accepted sprite as a drink.
--- NOTE | 2020-12-16 18:40 | NUR ---
I agree w/RN student's assessment. Pt resting in bed today w/intermittent nausea, unable to tolerate much PO intake. Bone marrow biopsy done this AM. Full bed change and bed bath done. Resting in room at this time w/o complaint.
--- NOTE | 2020-12-16 22:45 | NUR ---
Patient resting in bed with eyes closed upon shift start. at bedside. Patient opens eyes with calling her name. Patient appears very drowsy. Voice soft and weak. Patient A/O x3. Patient states she is feeling more tired and weak tonight. Patient's states that she hasn't been eating much today. Patient denies any pain or discomfort while at rest. Denies N/V. Wolf catheter in place and draining sherri urine. Left IJ central line site has no s/s of complications. Call light within reach. Will continue to monitor.
[2020-12-17 03:11] VITALS: BP 103/62; PULSE 102; TEMP 98.8
[2020-12-17 03:43] LABS: CERULOPLASMIN 23 mg/dL (20-60)
[2020-12-17 07:24] VITALS: BP 105/67; PULSE 114; TEMP 98
--- NOTE | 2020-12-17 08:39 | NUR ---
Assessment complete. Patient laying in bed stating that she has finished going to the restroom at this time. Patient was not on bed marquez. Patent had extremely large loose bowel movement. Full bed bath and bed change provided to the patient at thsi time. Fresh mepilex was applied to ulcers on coccyx. Patient became dizzy and a little nauseous, but tolerated well otherwise. no complaints of pain. Generalized edema is obvious throughout. left IJ site is CD&I at this time, fluids continue to run with no issues. patient states she is comfortable at this time. No other needs were expressed at this time. Continuing to monitor. Call light is in reach.
[2020-12-17] MEDS ORDERED: BIAXIN 500MG T500 MG PO (10:11)
[2020-12-17] MEDS ORDERED: FLAGYL500 MG PO (10:11)
[2020-12-17] MEDS ORDERED: VOLTAREN GEL 1%1 TU TP (10:12)
[2020-12-17] MEDS ORDERED: TYLENOL 500MG500 MG PO (10:14)
[2020-12-17] MEDS ORDERED: DESENEX TP (10:15)
[2020-12-17] MEDS ORDERED: ZOFRAN 4MG T4 MG/TAB PO (10:15)
[2020-12-17] MEDS ORDERED: NATURAL E400 IU PO (10:15)
[2020-12-17] MEDS ORDERED: COLACE 100100 MG/CAP PO (10:15)
[2020-12-17] MEDS ORDERED: REGLAN 10MG10 MG/TAB PO (10:18)
[2020-12-17 11:39] VITALS: BP 103/58; PULSE 111; TEMP 98.1
--- NOTE | 2020-12-17 15:30 | NUR ---
Patient left the floor at this time via EMS transfer. was at the bedside for transfer. All belongs were taken. No further questions or concerns.
--- NOTE | 2020-12-17 16:54 | NUR ---
Cancer Registry Manager attended clinical rounds with the team. APARNA and Valerie Fur Blowing Machine Attendant collaborated with Hospitalist about discharge plan. Patient will discharge home today with her . APARNA met with patient and patient's , Grcae to review discharge plan. Both patient and Juanjoseford feel comfortable with patient returning home today. SW discussed the possibility of obtaining a barbara lift for home. Patient would be interested in this. APARNA advised it would not be delivered today, but had patient complete Financial Assistance Application for [facility] as patient is Medicaid Pending. APARNA contacted Lydia at [facility] and provided update on patient's situation. APARNA faxed clinical updates, FAA, and order for barbara lift to Lydia. SW discussed with patient what her plan might be if there comes a time she does not feel she can manage at home, even with her 's assistance. Patient states she has not thought much about this and that it will be a challenge. SW advised patient that if her Medicaid is approved, she could be a candidate for longterm care as Medicaid is a payer source for LTC at nursing homes. Patient verbalized understanding. APARNA collaborated with Sheyla NAIDU and Customer Insight Analyst about how patient will get home. When APARNA asked patient and her , Grace, they advised they had another family member to assist, but could not give specifics about how patient would get into the home. Patient has not been able to stand or transfer without the barbara lift. APARNA contacted Khadijah at [facility] to obtain private pay cost for EMS transport home. Khadijah offered to provide transport, free of charge to the patient to get her home safely. Patient and Grace are agreeable to this plan as well as Sheyla NAIDU and Customer Insight Analyst. Patient discharged home this afternoon via EMS transport. APARNA contacted Kalyani at [facility] to give update on patient, who is established with provider, Anusha Duke. APARNA provided copy of FAA to Marii, Financial Counselor. APARNA also made a report to Adult Protective Services (intake#[id number]).
[2020-12-18 11:51] LABS: ANTISMOOTH MUSCLE ANTIBODY Negative (Negative)
== END 2020-12-17 15:30 | disposition home or self-care (01) | DRG 682 ==
LOC: MEDICAL 15:12
PROVIDERS: Family Medicine; Hospitalist; Internal Medicine; Internal Medicine Gastroenterology; Nurse Practitioner Family; Pathology Anatomic Pathology & Clinical Pathology; Physician Assistant; Surgery; ADMIT Internal Medicine Nephrology
PROC: 02HV33Z Insertion of Infusion Device into Superior Vena Cava, Percutaneous Approach (ICD-10-PCS; 2020-12-01)
PROC: 5A1D70Z Performance of Urinary Filtration, Intermittent, Less than 6 Hours Per Day (ICD-10-PCS; 2020-12-01)
PROC: 0DB98ZX Excision of Duodenum, Via Natural or Artificial Opening Endoscopic, Diagnostic (ICD-10-PCS; 2020-12-11)
PROC: 0DB68ZX Excision of Stomach, Via Natural or Artificial Opening Endoscopic, Diagnostic (ICD-10-PCS; 2020-12-11)
PROC: 0DB38ZX Excision of Lower Esophagus, Via Natural or Artificial Opening Endoscopic, Diagnostic (ICD-10-PCS; 2020-12-11)
PROC: 05H533Z Insertion of Infusion Device into Right Subclavian Vein, Percutaneous Approach (ICD-10-PCS; 2020-12-15)
PROC: 07DR3ZX Extraction of Iliac Bone Marrow, Percutaneous Approach, Diagnostic (ICD-10-PCS; principal; 2020-12-16 10:15)
DX: N17.0 Acute kidney failure with tubular necrosis (principal); G92 Toxic encephalopathy; N39.0 Urinary tract infection, site not specified; I13.0 Hypertensive heart and chronic kidney disease with heart failure and stage 1 through stage 4 chronic kidney disease, or unspecified chronic kidney disease; I50.32 Chronic diastolic (congestive) heart failure; G72.81 Critical illness myopathy; E87.1 Hypo-osmolality and hyponatremia; Z68.41 Body mass index [BMI] 40.0-44.9, adult; I47.1 Supraventricular tachycardia; B37.81 Candidal esophagitis; K60.2 Anal fissure, unspecified; N18.9 Chronic kidney disease, unspecified; D63.1 Anemia in chronic kidney disease; D69.6 Thrombocytopenia, unspecified; E66.01 Morbid (severe) obesity due to excess calories; R13.10 Dysphagia, unspecified; B37.9 Candidiasis, unspecified; R94.5 Abnormal results of liver function studies; K76.0 Fatty (change of) liver, not elsewhere classified; I25.2 Old myocardial infarction; M25.562 Pain in left knee; E11.22 Type 2 diabetes mellitus with diabetic chronic kidney disease; E11.649 Type 2 diabetes mellitus with hypoglycemia without coma; R59.9 Enlarged lymph nodes, unspecified; K59.09 Other constipation; B96.5 Pseudomonas (aeruginosa) (mallei) (pseudomallei) as the cause of diseases classified elsewhere; K29.50 Unspecified chronic gastritis without bleeding; B96.81 Helicobacter pylori [H. pylori] as the cause of diseases classified elsewhere; L89.322 Pressure ulcer of left buttock, stage 2; E11.21 Type 2 diabetes mellitus with diabetic nephropathy; M19.90 Unspecified osteoarthritis, unspecified site; L89.312 Pressure ulcer of right buttock, stage 2; L89.159 Pressure ulcer of sacral region, unspecified stage; Z86.711 Personal history of pulmonary embolism; Z79.01 Long term (current) use of anticoagulants; Z79.84 Long term (current) use of oral hypoglycemic drugs; Z79.82 Long term (current) use of aspirin; Z88.0 Allergy status to penicillin; Z88.6 Allergy status to analgesic agent
CPT/HCPCS: 99223; 99232-AI; 99233-AI; 99239; A9541; C1751; C9113; J1170; J1644; J2250; J2310; J2405; J2704; J2765; J2916; J3475; J7030; J7042; J7070; P9016; P9035; Q5106